=== PATIENT | female | born 1955 | race Caucasian/White ===

== ENCOUNTER 2020-12-20 15:24 | Emergency (ER) | payer MEDICARE, BC ==
[2020-12-20] MEDS ORDERED: Ondansetron 4 MG Tab.DIS PO ONE (16:03)
--- NOTE | 2020-12-20 16:07 | EDM.PDOC ---
ED HPI GENERAL MEDICAL PROBLEM - General Chief Complaint: General Stated Complaint: WEAK Time Seen by Provider: 12/20/20 15:45 Source of Information: Reports: Patient, RN. Denies: Old Records History Limitations: Reports: Other (limited old records) - History of Present Illness INITIAL COMMENTS - FREE TEXT/NARRATIVE: 65 yo female with renal CA on Keytruda for chemo presents with a week's duration of nausea, vomiting, bodyaches, weakness. light-headedness and loose stools. Has not been to her primary over this time interval. Called oncology today finally and was told to go to an ER. No blood in her stool or emesis. No fever. No abdominal pain. Appetite is diminished. Got her 2nd Covid vaccine yesterday. Here with family. Took a Zofran tablet just before leaving home. Onset: Gradual Onset Date: 12/13/20 Duration: Week(s): (1), Getting Worse Location: Reports: Generalized Quality: Reports: Ache (muscle) Severity: Mild Improves with: Reports: None Worsens with: Reports: Other (time) Context: Reports: Other (See HPI) Associated Symptoms: Reports: Loss of Appetite, Nausea/Vomiting, Weakness (generalized). 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) Generalized Pain Score (Numeric/FACES): 7 - Related Data Allergies Allergy/AdvReac Type Severity Reaction Status Date / Time No Known Allergies Allergy Verified 12/20/20 15:46 Home Meds: Home Meds Cholecalciferol (Vitamin D3) [Vitamin D] 5,000 unit PO DAILY 12/20/20 [History] Levothyroxine 137.5 mcg PO ACBREAKFAST 12/20/20 [History] Pembrolizumab [Keytruda] 50 mg IV ASDIRECTED 12/20/20 [History] Past Medical History HEENT History: Reports: Impaired Vision Respiratory History: Reports: Other (See Below) Other Respiratory History: speckles on her lungs [employer]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: Endocrine/Metabolic History: Reports: Hypothyroidism Oncologic (Cancer) History: Reports: Other (See Below) Other Oncologic History: kidney cancer - Infectious Disease History Infectious Disease History: Reports: Chicken Pox, Measles - Past Surgical History GI Surgical History: Reports: Cholecystectomy Female Surgical History: Reports: Section Musculoskeletal Surgical History: Reports: Arthroscopic Procedure Social & Family History - Tobacco Use Tobacco Use Status *Q: Never Tobacco User - Caffeine Use Caffeine Use: Reports: Coffee - Recreational Drug Use Recreational Drug Use: No ED ROS GENERAL - Review of Systems Review Of Systems: See Below Constitutional: Reports: Malaise, Weakness. Denies: Fever, Chills, Diaphoresis HEENT: Reports: No Symptoms Respiratory: Reports: No Symptoms Cardiovascular: Reports: Lightheadedness Endocrine: Reports: Fatigue GI/Abdominal: Reports: Diarrhea, Nausea, Vomiting. Denies: Anorexia, Black Stool, Bloody Stool, Constipation, Distension, Hematemesis, Hematochezia, Melena : Reports: No Symptoms Musculoskeletal: Reports: Other (diffuse muscle aches) Skin: Reports: No Symptoms Neurological: Reports: No Symptoms Psychiatric: Reports: No Symptoms ED EXAM, GENERAL - Physical Exam Exam: See Below Exam Limited By: No Limitations General Appearance: Alert, WD/WN, No Apparent Distress Eye Exam: Bilateral Eye: Normal Inspection Ears: Normal External Exam, Normal Canal, Hearing Grossly Normal. No: Hearing Loss Ear Exam: Bilateral Ear: Auricle Normal, Canal Normal Nose: Normal Inspection, No Blood Throat/Mouth: Normal Inspection, Normal Lips, Normal Oropharynx, Normal Voice, No Airway Compromise Head: Atraumatic, Normocephalic Neck: Normal Inspection Respiratory/Chest: No Respiratory Distress, Lungs Clear, Normal Breath Sounds, No Accessory Muscle Use. No: Respiratory Distress Cardiovascular: Regular Rate, Rhythm, No Edema, Tachycardia GI/Abdominal: Normal Bowel Sounds, Soft, Non-Tender, No Distention Back Exam: Normal Inspection. No: CVA Tenderness (R), CVA Tenderness (L) Extremities: Normal Inspection, Normal Range of Motion, Non-Tender, No Pedal Edema Neurological: Alert, Oriented, CN II-XII Intact, Normal Cognition, No Motor/Sensory Deficits Psychiatric: Normal Affect, Normal Mood Skin Exam: Warm, Dry, Intact, Normal Color, No Rash Course - Vital Signs Last Recorded V/S: Last Vital Signs Temp 36.5 C 12/20/20 15:40 Pulse 104 H 12/20/20 17:52 Resp 16 12/20/20 15:40 BP 146/96 H 12/20/20 17:52 Pulse Ox 95 12/20/20 17:52 - Orders/Labs/Meds Orders: Active Orders 24 hr Category Date Time Status Cardiac Monitoring [RC] .As Directed Care 12/20/20 15:47 Active Sodium Chloride 0.9% [Saline Flush] Med 12/20/20 16:02 Active 10 ml FLUSH ASDIRECTED PRN Saline Lock Insert [OM.PC] Routine Oth 12/20/20 16:02 Ordered Medication Orders Sodium Chloride (Sodium Chloride 0.9% 10 Ml Syringe) 10 ml FLUSH ASDIRECTED PRN PRN Reason: Keep Vein Open Last Admin: 12/20/20 16:16 Dose: 10 ml Documented by: ELSIE Labs: Laboratory Tests 12/20/20 12/20/20 12/20/20 Range/Units 15:58 16:14 16:14 WBC 6.4 (4.5-11.0) K/uL RBC 5.52 H (3.30-5.50) M/uL Hgb 15.6 H (12.0-15.0) g/dL Hct 46.5 (36.0-48.0) % MCV 84 (80-98) fL MCH 28 (27-31) pg MCHC 34 (32-36) % Plt Count 264 (150-400) K/uL ESR 46 H (0-25) mm/hr Sodium 132 L (140-148) mmol/L Potassium 4.2 (3.6-5.2) mmol/L Chloride 97 L (100-108) mmol/L Carbon Dioxide 28 (21-32) mmol/L Anion Gap 11.2 (5.0-14.0) mmol/L BUN 13 (7-18) mg/dL Creatinine 1.4 H (0.6-1.0) mg/dL Est Cr Clr Drug Dosing 37.00 mL/min Estimated GFR (MDRD) 38 L (>60) Glucose 88 (74-106) mg/dL Calcium 9.7 (8.5-10.1) mg/dL Total Bilirubin 0.5 (0.2-1.0) mg/dL AST 32 (15-37) U/L ALT 39 (12-78) U/L Alkaline Phosphatase 65 (46-116) U/L Creatine Kinase 81 (26-192) U/L Total Protein 7.2 (6.4-8.2) g/dL Albumin 3.1 L (3.4-5.0) g/dL Globulin 4.1 H (2.3-3.5) g/dL Albumin/Globulin Ratio 0.8 L (1.2-2.2) TSH, Ultra Sensitive (0.358-3.740) uIU/mL Urine Color (YELLOW) Urine Appearance (CLEAR) Urine pH (5.0-8.0) Ur Specific [place] (1.008-1.030) Urine Protein (NEGATIVE) mg/dL Urine Glucose (UA) (NEGATIVE) mg/dL Urine Ketones (NEGATIVE) mg/dL Urine Occult Blood (NEGATIVE) Urine Nitrite (NEGATIVE) Urine Bilirubin (NEGATIVE) Urine Urobilinogen (0.2-1.0) EU/dL Ur Leukocyte Esterase (NEGATIVE) Urine RBC (0-5) Urine WBC (0-5) Ur Epithelial Cells Amorphous Sediment Urine Bacteria Urine Mucus SARS CoV-2 RNA Rapid HARSHA Negative 12/20/20 12/20/20 Range/Units 16:14 17:52 WBC (4.5-11.0) K/uL RBC (3.30-5.50) M/uL Hgb (12.0-15.0) g/dL Hct (36.0-48.0) % MCV (80-98) fL MCH (27-31) pg MCHC (32-36) % Plt Count (150-400) K/uL ESR (0-25) mm/hr Sodium (140-148) mmol/L Potassium (3.6-5.2) mmol/L Chloride (100-108) mmol/L Carbon Dioxide (21-32) mmol/L Anion Gap (5.0-14.0) mmol/L BUN (7-18) mg/dL Creatinine (0.6-1.0) mg/dL Est Cr Clr Drug Dosing mL/min Estimated GFR (MDRD) (>60) Glucose (74-106) mg/dL Calcium (8.5-10.1) mg/dL Total Bilirubin (0.2-1.0) mg/dL AST (15-37) U/L ALT (12-78) U/L Alkaline Phosphatase (46-116) U/L Creatine Kinase (26-192) U/L Total Protein (6.4-8.2) g/dL Albumin (3.4-5.0) g/dL Globulin (2.3-3.5) g/dL Albumin/Globulin Ratio (1.2-2.2) TSH, Ultra Sensitive 0.223 L (0.358-3.740) uIU/mL Urine Color Yellow (YELLOW) Urine Appearance Clear (CLEAR) Urine pH 5.5 (5.0-8.0) Ur Specific [place] 1.025 (1.008-1.030) Urine Protein Negative (NEGATIVE) mg/dL Urine Glucose (UA) Negative (NEGATIVE) mg/dL Urine Ketones Trace H (NEGATIVE) mg/dL Urine Occult Blood Negative (NEGATIVE) Urine Nitrite Negative (NEGATIVE) Urine Bilirubin Negative (NEGATIVE) Urine Urobilinogen 0.2 (0.2-1.0) EU/dL Ur Leukocyte Esterase Small H (NEGATIVE) Urine RBC 0-5 (0-5) Urine WBC 5-10 H (0-5) Ur Epithelial Cells Occasional Amorphous Sediment Occasional Urine Bacteria Occasional Urine Mucus Occasional SARS CoV-2 RNA Rapid HARSHA Meds: Medications Generic Name Dose Route Start Last Admin Trade Name Freq PRN Reason Stop Dose Admin Sodium Chloride 10 ml 12/20/20 16:02 12/20/20 16:16 Sodium Chloride 0.9% 10 Ml Syringe FLUSH 10 ml ASDIRECTED PRN Administration Keep Vein Open Discontinued Medications Generic Name Dose Route Start Last Admin Trade Name Freq PRN Reason Stop Dose Admin Acetaminophen 1,000 mg 12/20/20 17:20 12/20/20 17:24 Acetaminophen 500 Mg Tab PO 12/20/20 17:21 1,000 mg ONETIME ONE Administration Sodium Chloride 1,000 mls @ 1,000 mls/hr 12/20/20 16:45 12/20/20 16:49 Normal Saline IV 12/20/20 17:44 1,000 mls/hr .BOLUS ONE Administration Ondansetron HCl 4 mg 12/20/20 16:03 Ondansetron 4 Mg Tab.Dis PO 12/20/20 16:04 ONETIME ONE Ondansetron HCl 4 mg 12/20/20 18:19 Ondansetron 4 Mg/2 Ml Sdv IVPUSH 12/20/20 18:20 ONETIME ONE Departure - Departure Time of Disposition: 18:40 Disposition: Home, Self-Care 01 Condition: Fair Clinical Impression: Hyponatremia, Mild dehydration, Low TSH level - Discharge Information *PRESCRIPTION DRUG MONITORING PROGRAM REVIEWED*: Not Applicable *COPY OF PRESCRIPTION DRUG MONITORING REPORT IN PATIENT MARYANA: Not Applicable Instructions: Dehydration, Elderly, [id number] Referrals: Toño Malone MD [Primary Care Provider] - Forms: ED Department Discharge Additional Instructions: Substitute a sport drink for some of your water. Use Zofran as needed for nausea control. Share your test results with your oncologist tomorrow. Return as needed. Sepsis Event Note (ED) - Focused Exam Vital Signs: Vital Signs Temp Pulse Resp BP Pulse Ox 12/20/20 17:52 104 H 146/96 H 95 12/20/20 16:47 104 H 149/102 H 94 L 12/20/20 16:01 107 H 119/91 H 94 L 12/20/20 15:40 36.5 C 111 H 16 137/99 H 94 L - My Orders Last 24 Hours: My Active Orders 12/20/20 15:47 Cardiac Monitoring [RC] .As Directed 12/20/20 16:02 Sodium Chloride 0.9% [Saline Flush] 10 ml FLUSH ASDIRECTED PRN Saline Lock Insert [OM.PC] Routine - Assessment/Plan Last 24 Hours: My Active Orders 12/20/20 15:47 Cardiac Monitoring [RC] .As Directed 12/20/20 16:02 Sodium Chloride 0.9% [Saline Flush] 10 ml FLUSH ASDIRECTED PRN Saline Lock Insert [OM.PC] Routine
[2020-12-20] MEDS: Sodium Chloride 0.9% 10 ML Syringe FLUSH PRN ×2 (16:16→18:33)
[2020-12-20] MEDS ORDERED: Sodium Chloride 0.9% 1,000 ML IV ONE (16:45)
[2020-12-20] MEDS ORDERED: Acetaminophen 500 MG Tab PO ONE (17:20)
[2020-12-20] MEDS ORDERED: Ondansetron 4 MG/2 ML SDV IVPUSH ONE (18:19)
== END 2020-12-20 19:37 | disposition home or self-care (01) ==
LOC: JP.ED 15:24
DX: E86.0 Dehydration (principal); E87.1 Hypo-osmolality and hyponatremia; R94.6 Abnormal results of thyroid function studies; E03.9 Hypothyroidism, unspecified; Z79.899 Other long term (current) drug therapy; Z20.822 Contact with and (suspected) exposure to COVID-19
CPT/HCPCS: 36415; 80053; 81001; 82550; 84443; 85027; 85651; 96374; 99284; A9270; J2405; J7030; U0002

== ENCOUNTER 2021-07-12 12:56 | Emergency (ER) | payer MEDICARE, BC ==
[2021-07-12] MEDS ORDERED: Sodium Chloride 0.9% 1,000 ML IV SCH (13:45)
[2021-07-12] MEDS ORDERED: Promethazine 6.25 MG in Sodium Chloride 0.9% 50 ML IV ONE (13:46)
== END 2021-07-12 16:30 | disposition home or self-care (01) ==
LOC: JP.ED 12:56
DX: E86.0 Dehydration (principal); R11.2 Nausea with vomiting, unspecified; C64.9 Malignant neoplasm of unspecified kidney, except renal pelvis; E03.9 Hypothyroidism, unspecified; Z72.0 Tobacco use; Z79.899 Other long term (current) drug therapy
CPT/HCPCS: 36415; 80053; 83690; 85025; 96365; 99284; 99284-25; J2550; J3490; J7030